=== PATIENT | female | born 1945 | race Caucasian/White ===

== ENCOUNTER 2017-01-02 09:41 | Outpatient (CLI) | payer OTHER ==
[~2017-01-02] VITALS: Ht 165.1 cm; Wt 83.9 kg
[~2017-01-02 09:41] MED LIST: ASPI81TA85 PO; ATOR40TA75 PO; BYET10IN2 SQ; CARI350T PO; LANTINJ4 SQ; LEVO100T5 PO; LISI40TAB PO; METF10004 PO; OMEP20CA3 PO
[2017-01-02] MEDS ORDERED: NS 1,000 ML IV ONE (09:45)
--- NOTE | 2017-01-02 10:43 | ROOR ---
Patient Name: Anna Borges Procedure Date: 01/02/2017 10:22 AM Date of : 1945 Age: 71 Room: [facility] Gender: Female Note Status: Finalized Procedure: Total Colonoscopy to cecum + Biopsy Polypectomy Indications: High risk colon cancer surveillance: Personal history of colonic polyps, Last colonoscopy: 2012 Providers: Remington Rueda MD Referring MD: Denzel Dutta MD Requesting Provider: Medicines: Monitored Anesthesia Care Complications: No immediate complications. Procedure: Pre-Anesthesia Assessment: - The heart rate, respiratory rate, oxygen saturations, blood pressure, adequacy of pulmonary ventilation, and response to care were monitored throughout the procedure. The Colonoscope was introduced through the anus and advanced to the cecum, identified by appendiceal orifice and ileocecal valve. The colonoscopy was performed without difficulty. The patient tolerated the procedure well. The quality of the bowel preparation was excellent. Findings: The perianal and digital rectal examinations were normal. Non-bleeding internal hemorrhoids were found during retroflexion. The hemorrhoids were small. No other significant abnormalities were identified in a careful examination of the remainder of the colon. The exam was otherwise without abnormality on direct and retroflexion views. Impression: - Non-bleeding internal hemorrhoids. - The examination was otherwise normal on direct and retroflexion views. - No specimens collected. - The exam was otherwise normal to the cecum. Recommendation: - Patient has a contact number available for emergencies. The signs and symptoms of potential delayed complications were discussed with the patient. Return to normal activities tomorrow. Written discharge instructions were provided to the patient. - High fiber diet. - Discharge patient to home. - Continue present medications. - Await pathology results. - Telephone GI clinic for pathology results in 1 week. - Check Portal Online for Path Results.([email or web address]) - Repeat colonoscopy for symptoms only. - Return to referring physician. - The findings and recommendations were discussed with the patient's family. Remington Rueda MD Remington Rueda MD 01/02/2017 10:43:10 AM This report has been signed electronically. Number of Addenda: 0 Note Initiated On: 01/02/2017 10:22 AM Estimated Blood Loss: Estimated blood loss: none.
[2017-01-02 11:39] VITALS: BP 156/74
== END 2017-01-02 11:20 | disposition home or self-care (01) ==
LOC: M OPP 09:41
PROVIDERS: ATTEND Internal Medicine Gastroenterology
DX: Z12.11 Encounter for screening for malignant neoplasm of colon (principal); Z86.010 Personal history of colon polyps; K63.5 Polyp of colon; I10 Essential (primary) hypertension; E78.5 Hyperlipidemia, unspecified; E11.9 Type 2 diabetes mellitus without complications; E03.9 Hypothyroidism, unspecified; G35 Multiple sclerosis; M54.89 Other dorsalgia; G25.81 Restless legs syndrome; R39.15 Urgency of urination; Z79.82 Long term (current) use of aspirin; Z79.899 Other long term (current) drug therapy

== ENCOUNTER 2017-12-07 08:01 | Day surgery (SDC) | payer OTHER ==
[~2017-12-07 08:01] MED LIST changes: -ASPI81TA85 PO; -ATOR40TA75 PO; -BYET10IN2 SQ; -CARI350T PO; -LANTINJ4 SQ; -LEVO100T5 PO; -LISI40TAB PO; -METF10004 PO; +MIDAZOLAM INJ 2 MG/2 ML VIAL (J2250) As Ordered; -OMEP20CA3 PO; +ONDANSETRON 4MG/2ML VIAL (J2405) As Ordered; +fentaNYL 100 MCG/2 ML INJECTION (J3010) As Ordered
[2017-12-07] MEDS: PHENYLEPHRINE 2.5% OPHTH SOL 2ML OS (09:01)
[2017-12-07] MEDS: OFLOXACIN 0.3 % (OCUFLOX) OPTH SOL 5ML OS (09:01)
[2017-12-07] MEDS: PROPARACAINE 0.5% OPHTH SOL 15ML OS (09:01)
[2017-12-07] MEDS: TROPICAMIDE 1% OPHTH SOLN 2ML OS (09:01)
[2017-12-07 09:16] LABS: BEDSIDE GLUCOSE 106 MG/DL (83-110)
[2017-12-07] MEDS: DUOVISC (0.50ML VISCOAT/0.55ML PROVISC) OPHTH KIT As Ordered (10:32)
[2017-12-07] MEDS: LIDOCAINE 0.75%/EPINEPHRINE 0.025% IN BSS 1ML SYR INTRACAMERAL (OR ONLY) As Ordered (10:32)
[2017-12-07] MEDS: BALANCED SALT IRRIGATION SOLUTION 500ML BAG (FOR OR EYE MACHINE) As Ordered (10:32)
[2017-12-07] MEDS: POVIDONE-IODINE 5% OPHTH PREP SOL 30ML As Ordered (10:32)
[2017-12-07] MEDS: CEFUROXIME 1MG/0.1ML INTRACAMERAL INJ As Ordered (10:33)
== END 2017-12-07 11:15 | disposition home or self-care (01) ==
LOC: M SDC 08:01
DX: H25.12 Age-related nuclear cataract, left eye (principal); E03.9 Hypothyroidism, unspecified; I10 Essential (primary) hypertension; E78.5 Hyperlipidemia, unspecified; E10.9 Type 1 diabetes mellitus without complications; M62.838 Other muscle spasm; G35 Multiple sclerosis; Z79.899 Other long term (current) drug therapy; Z79.82 Long term (current) use of aspirin; Z79.4 Long term (current) use of insulin; Z90.710 Acquired absence of both cervix and uterus
CPT/HCPCS: 66984

== ENCOUNTER 2017-12-14 08:33 | Day surgery (SDC) | payer OTHER ==
[2017-12-14 08:59] LABS: BEDSIDE GLUCOSE 78 MG/DL (83-110)
[2017-12-14] MEDS: OFLOXACIN 0.3 % (OCUFLOX) OPTH SOL 5ML OD (09:01)
[2017-12-14] MEDS: PROPARACAINE 0.5% OPHTH SOL 15ML OD (09:01)
[2017-12-14] MEDS: TROPICAMIDE 1% OPHTH SOLN 2ML OD (09:01)
[2017-12-14] MEDS: PHENYLEPHRINE 2.5% OPHTH SOL 2ML OD (09:01)
[2017-12-14] MEDS: POVIDONE-IODINE 5% OPHTH PREP SOL 30ML As Ordered (10:25)
[2017-12-14] MEDS: DUOVISC (0.50ML VISCOAT/0.55ML PROVISC) OPHTH KIT As Ordered (10:25)
[2017-12-14] MEDS: BALANCED SALT IRRIGATION SOLUTION 500ML BAG (FOR OR EYE MACHINE) As Ordered (10:25)
[2017-12-14] MEDS: LIDOCAINE 0.75%/EPINEPHRINE 0.025% IN BSS 1ML SYR INTRACAMERAL (OR ONLY) As Ordered (10:25)
[2017-12-14] MEDS: CEFUROXIME 1MG/0.1ML INTRACAMERAL INJ As Ordered (10:25)
[2017-12-14] MEDS ORDERED: MIDAZOLAM INJ 2 MG/2 ML VIAL (J2250) As Ordered (10:30)
[2017-12-14] MEDS ORDERED: fentaNYL 100 MCG/2 ML INJECTION (J3010) As Ordered (10:30)
== END 2017-12-14 11:30 | disposition home or self-care (01) ==
LOC: M SDC 08:33
DX: H25.11 Age-related nuclear cataract, right eye (principal); E11.9 Type 2 diabetes mellitus without complications; Z79.4 Long term (current) use of insulin; Z79.84 Long term (current) use of oral hypoglycemic drugs; G35 Multiple sclerosis; Z79.899 Other long term (current) drug therapy
CPT/HCPCS: 66984

== ENCOUNTER 2019-08-20 17:39 | Observation (INO) | payer MEDICARE, OTHER ==
[~2019-08-20] VITALS: Ht 165.1 cm; Wt 82.2 kg
[~2019-08-20 17:39] MED LIST changes: +ASPI81TA86 PO; +ATOR40TA75 PO; +BYET10IN10 SQ; +CARI1TAB7 PO; +LANTINJ4 SQ; +LEVO100T5 PO; +LISI40TA4 PO; +METF10004 PO; -MIDAZOLAM INJ 2 MG/2 ML VIAL (J2250) As Ordered; +OMEP1CAP73 PO; -ONDANSETRON 4MG/2ML VIAL (J2405) As Ordered; +TRUL0.5I SC; -fentaNYL 100 MCG/2 ML INJECTION (J3010) As Ordered
[2019-08-20 18:50] LABS: BASO % 0.3 % (0.0-1.0); EOS # 0.1 10^3/uL (0.0-0.5); EOS % 0.4 % (0.0-3.0); HEMOGLOBIN 13.5 g/dl (12.0-15.5); LYMPH # 1.1 10^3/uL (1.5-5.0); LYMPH % 8.2 % (24.0-44.0); MEAN CORPUSCULAR HEMOGLOBIN 30.2 pg (27.0-33.0); MEAN CORPUSCULAR HGB CONC 32.9 g/dl (32.0-36.5); MEAN CORPUSCULAR VOLUME 91.7 fl (80.0-96.0); MONO # 0.6 10^3/uL (0.0-0.8); MONO % 4.5 % (0.0-5.0); NEUTROPHILS # 11.6 10^3/uL (1.5-8.5); NEUTROPHILS % 86.2 % (36.0-66.0); PLATELET COUNT, AUTOMATED 208 10^3/uL (150-450); RED BLOOD COUNT 4.47 10^6/uL (4.00-5.40); WHITE BLOOD COUNT 13.5 10^3/uL (4.0-10.0)
[2019-08-20 19:05] LABS: HEMOGLOBIN A1c 6.3 %
[2019-08-20] MEDS ORDERED: DEXTROSE 50% 50 ML SYRINGE IV STA (19:15)
[2019-08-20 19:16] LABS: BLOOD UREA NITROGEN 17 MG/DL (7-18); CALCIUM LEVEL 9.1 MG/DL (8.8-10.2); CARBON DIOXIDE LEVEL 32 MEQ/L (21-32); CHLORIDE LEVEL 106 MEQ/L (98-107); CREATININE FOR GFR 0.64 MG/DL (0.55-1.30); GLOMERULAR FILTRATION RATE > 60.0 (>39); GLUCOSE, FASTING 35 MG/DL (70-100); POTASSIUM SERUM 3.4 MEQ/L (3.5-5.1); SODIUM LEVEL 142 MEQ/L (136-145)
[2019-08-20] MEDS ORDERED: lisinopriL 40 MG TAB PO ONE (19:45)
[2019-08-20] MEDS ORDERED: ATORVASTATIN 20 MG TAB PO ONE (19:45)
[2019-08-20 20:01] LABS: ALBUMIN 3.8 GM/DL (3.2-5.2); ALT/SGPT 22 U/L (12-78); BILIRUBIN,DIRECT < 0.1 MG/DL (0.0-0.2); BILIRUBIN,TOTAL 0.2 MG/DL (0.2-1.0); CK-MB VALUE MASS 5.6 NG/ML (<3.6); CPK CREATINE PHOSPHOKINASE 117 U/L (26-192); FREE T4 0.98 NG/DL (0.76-1.46); MB/CK RELATIVE INDEX 4.79 (< OR =4); THYROID STIMULATING HORMONE 0.921 uIU/ML (0.358-3.740); TOTAL PROTEIN 7.1 GM/DL (6.4-8.2); TROPONIN I 0.13 NG/ML (< 0.10)
--- NOTE | 2019-08-20 20:02 | REP ---
Clinical: Syncope . Comparison: 01/24/2008 . Findings: The mediastinum and cardiac silhouette are stable and within normal limits for portable technique. The lung mg are clear without acute consolidation, effusion, or pneumothorax. Skeletal structures are intact. Impression: No acute cardiopulmonary process appreciated. Electronically Signed by Cem Christian MD 08/20/2019 07:53 P
[2019-08-20] MEDS ORDERED: ASPIRIN 81 MG ENTERIC TAB PO SCH (21:00)
[2019-08-20] MEDS ORDERED: TRES1INJ SC (21:09)
[2019-08-20] MEDS ORDERED: INSUH10VL SC (21:09)
[2019-08-20] MEDS ORDERED: REST0.05 OU (21:09)
[2019-08-20] MEDS ORDERED: IBUP200T45 PO (21:09)
[2019-08-20] MEDS ORDERED: carisoprodoL 350 MG TAB PO PRN (21:45)
[2019-08-20] MEDS ORDERED: POTASSIUM CHLORIDE 10 MEQ SR TABLET PO ONE (21:45)
--- NOTE | 2019-08-20 22:07 | HPEPDOC ---
General Date of Admission Aug 20, 2019 at 17:40 Date of Service: Aug 20, 2019 Chief Complaint The patient is a 73-year-old female admitted with a reason for visit of Hypoglycemia. Source: Patient History of Present Illness 73 year old female presented to the ED for Hypoglycemia and syncope. Patient was in her usual state of health this am. She went grocery shopping and had some left knee weakness from her MS which sometimes bothers her. She came home about 2 pm was hungry had some fruits took her novolog and metformin and was sitting down waiting for rest of the lunch to be ready. Daughter came around the corner of the room and she complained of feeling funny and then she leaned back her head and passed out. EMS came and found her sugar to be 38. She was treated and sugars john to over 200 . in the ED lab work again showed a drop of Sugars to 35 she was awake and alert then so was given oral treatment with that her sugar john to 69 and stabilized there. On my interview she was comfortable , alert oriented and did nt have any complaints other than some left knee soreness and weakness. Her knee pain was about 3/10 and dull aching associated with weakness, no radiation. Work up int eh ED showed a trop of 0.13, Her EKG showed ST-T wave changes in the lat leads consistent with LVH. She was admitted for Hypoglycemia and syncope. Home Medications Scheduled Aspirin (Aspir 81) 81 Mg Tab, 243 MG PO QHS, (Reported) Atorvastatin Calcium (Atorvastatin Calcium) 40 Mg Tab, 40 MG PO QHS, (Reported) Cyclosporine (Restasis) 0.05% Droperette, 2 DROP OU BID, (Reported) Dulaglutide (Trulicity) 1.5 Mg/0.5 Ml Inj, 1.5 MG SC QWEEK, (Reported) MONDAYS Insulin Degludec (Tresiba Flextouch U-200) 200 Unit/1 Ml Insuln.pen, 60 UNIT SC QHS, (Reported) Insulin Human Lispro (Novolog) 100 Unit/1 Ml Vial, 1 DOSE SC AC, (Reported) PER SLIDING SCALE Levothyroxine Sodium (Levothyroxine Sodium) 100 Mcg Tab, 100 MCG PO DAILY, (R eported) Lisinopril (Lisinopril) 40 Mg Tab, 40 MG PO QHS, (Reported) Metformin HCl (Metformin HCl) 1,000 Mg Tab, 1,000 MG PO BID, (Reported) Scheduled PRN Carisoprodol (Carisoprodol) 350 Mg Tab, 350 MG PO BID PRN for MUSCLE SPASMS, (Reported) Ibuprofen (Ibu-200) 200 Mg Tablet, 800 MG PO Q8H PRN for PAIN, (Reported) Allergies Coded Allergies: No Known Allergies (Verified , 12/14/17) Past Medical History Medical History MS not on any meds, Quiescent, some left knee weakness DM Hypertension Hyperlipidemia Hypothyroid Surgical History Rotator cuff surgery, hystrectomy Family History Significant Family History: Diabetes (mther, paternal grandmother, maternal aunts), Heart disease (paternal grandmother) Social History * Smoker: Denies Alcohol: Denies Drugs: denies A-FIB/CHADSVASC A-FIB History Current/History of A-Fib/PAF?: No Review of Systems Constitutional: Reports: Other (passed out); Denies: Chills, Fever, Night Sweats Eyes: Denies: Pain, Vision change ENT: Denies: Head Aches, Ear Pain, Dysphagia Skin: Denies: Rash, Lesions, Breakdown Pulmonary: Denies: Dyspnea, Cough Cardiovascular: Denies: Chest Pain, Palpitations, Orthopnea, Paroxysmal Noc. Dyspnea, Lt Headedness Gastrointestinal: Denies: Nausea, Vomiting, Abdominal Pain, Diarrhea Genitourinary: Reports: Frequency, Incontinence; Denies: Dysuria, Retention Hematologic: Denies: Bruising, Bleeding Excessively Musculoskeletal: Reports: Joint Pain (left knee weakness), Muscle Pain (let leg) Neurological: Reports: Weakness (left leg, knee) Psych: Reports: Mood Normal; Denies: Depression, Memory Issues Physical Examination General Exam: Positive: Alert, Cooperative, No Acute Distress Eye Exam: Positive: PERRLA, Conjunctiva & lids normal, EOMI; Negative: Sclera icteric ENT Exam: Positive: Atraumatic, Mucous membr. moist/pink, Pharynx Normal Neck Exam: Positive: Supple; Negative: JVD, thyromegaly Chest Exam: Positive: Clear to auscultation, Normal air movement Heart Exam: Positive: Rate Normal, Regular Rhythm, Normal S1, Normal S2; Negative: Murmurs, Rubs Telemetry: Positive: No significant arrhythmia Abdomen Exam: Positive: Normal bowel sounds, Soft; Negative: Tenderness, Hepatospenomegaly Extremity Exam: Negative: Clubbing, Cyanosis, Edema Skin Exam: Positive: Nl turgor and temperature; Negative: Breakdown, Lesion Psych Exam: Positive: Mental status NL, Mood NL, Memory Intact, Oriented x 3 Vital Signs Vital Signs Date Time Temp Pulse Resp B/P (MAP) Pulse Ox O2 Delivery O2 Flow Rate FiO2 08/20/19 17:52 97.4 80 20 181/85 (117) 96 Room Air Laboratory Data Labs 24H Laboratory Tests 2 08/20/19 18:26: Immature Granulocyte % (Auto) 0.4, Neutrophils (%) (Auto) 86.2H, Lymphocytes (%) (Auto) 8.2L, Monocytes (%) (Auto) 4.5, Eosinophils (%) (Auto) 0.4, Basophils (%) (Auto) 0.3, Neutrophils # (Auto) 11.6H, Lymphocytes # (Auto) 1.1L, Monocytes # (Auto) 0.6, Eosinophils # (Auto) 0.1, Basophils # (Auto) 0.0, Nucleated Red Blood Cells % (auto) 0.0, Anion Gap 4L, Glomerular Filtration Rate > 60.0, Estimated Mean Plasma Glucose 134H, Hemoglobin A1c 6.3, Calcium Level 9.1, Total Bilirubin 0.2, Direct Bilirubin < 0.1, Aspartate Amino Transf (AST/SGOT) 13, Alanine Aminotransferase (ALT/SGPT) 22, Alkaline Phosphatase 85, Total Creatine Kinase 117, Creatine Kinase MB 5.6H, Creatine Kinase MB Relative Index 4.79H, Troponin I 0.13H, Total Protein 7.1, Albumin 3.8, Albumin/Globulin Ratio 1.2, Thyroid Stimulating Hormone (TSH) 0.921, Free Thyroxine 0.98 08/20/19 19:23: Bedside Glucose (Misc Panel) 69L 08/20/19 20:21: Bedside Glucose (Misc Panel) 69L CBC/BMP Laboratory Tests 08/20/19 18:26 Assessment/Plan 73 year old female presented to the ED for Hypoglycemia and syncope. Patient was in her usual state of health this am. She went grocery shopping and had some left knee weakness from her MS which sometimes bothers her. She came home about 2 pm was hungry had some fruits took her novolog and metformin and was sitting down waiting for rest of the lunch to be ready. Daughter came around the corner of the room and she complained of feeling funny and then she leaned back her head and passed out. EMS came and found her sugar to be 38. She was treated and sugars john to over 200 . in the ED lab work again showed a drop of Sugars to 35 she was awake and alert then so was given oral treatment with that her sugar john to 69 and stabilized there. On my interview she was comfortable , alert or iented and did nt have any complaints other than some left knee soreness and weakness. Her knee pain was about 3/10 and dull aching associated with weakness, no radiation. Work up int ED showed a trop of 0.13, Her EKG showed ST-T wave changes in the lat leads consistent with LVH. She was admitted for Hypoglycemia and syncope. Syncope due to Hypoglycemia A1c is 6.3 will give Dex 5% monitor FS q4 hours overnight. Will hold insulin, metformin for now. may need to reduce home insulin dosage. Elevated troponins without any cardiac symptoms or new EKG changes will recheck cardiac enzymes EKG repeat in AM Patient says had several stress tests in the past was told that had a fixed abnormality at the bottom of the heart by Dr Godinez nothing major. will monitor under telemetry Hypertension continue lisinopril Hyperlipidemia statin Hypothyroid Synthroid MS Torres prn muscle spasms Plan / VTE VTE Prophylaxis Ordered?: Yes ROSAMARIA RODRÍGUEZ MD Aug 20, 2019 22:07
[2019-08-20 23:11] VITALS: BP 177/88
[2019-08-20] MEDS: D5W 1,000 ML IV SCH (23:18)
[2019-08-20 23:40] VITALS: BP 147/63
[2019-08-21] MEDS ORDERED: PERCOCET 5MG/325MG TAB PO PRN ×2 (00:30)
[2019-08-21 02:44] LABS: CK-MB VALUE MASS 4.8 NG/ML (<3.6); MB/CK RELATIVE INDEX 4.36 (< OR =4); TROPONIN I 0.22 NG/ML (< 0.10)
[2019-08-21 05:46] LABS: BASO % 0.4 % (0.0-1.0); EOS # 0.1 10^3/uL (0.0-0.5); EOS % 1.6 % (0.0-3.0); HEMATOCRIT 37.6 % (36.0-47.0); HEMOGLOBIN 12.1 g/dl (12.0-15.5); LYMPH # 2.5 10^3/uL (1.5-5.0); LYMPH % 31.9 % (24.0-44.0); MEAN CORPUSCULAR HEMOGLOBIN 29.5 pg (27.0-33.0); MEAN CORPUSCULAR HGB CONC 32.2 g/dl (32.0-36.5); MEAN CORPUSCULAR VOLUME 91.7 fl (80.0-96.0); MONO # 0.6 10^3/uL (0.0-0.8); MONO % 7.4 % (0.0-5.0); NEUTROPHILS # 4.5 10^3/uL (1.5-8.5); NEUTROPHILS % 58.3 % (36.0-66.0); PLATELET COUNT, AUTOMATED 194 10^3/uL (150-450); WHITE BLOOD COUNT 7.7 10^3/uL (4.0-10.0)
[2019-08-21 06:00] VITALS: BP 139/85
[2019-08-21 06:05] LABS: BLOOD UREA NITROGEN 14 MG/DL (7-18); CALCIUM LEVEL 8.8 MG/DL (8.8-10.2); CARBON DIOXIDE LEVEL 29 MEQ/L (21-32); CHLORIDE LEVEL 109 MEQ/L (98-107); CREATININE FOR GFR 0.68 MG/DL (0.55-1.30); GLOMERULAR FILTRATION RATE > 60.0 (>39); GLUCOSE, FASTING 89 MG/DL (70-100); POTASSIUM SERUM 3.8 MEQ/L (3.5-5.1); SODIUM LEVEL 143 MEQ/L (136-145)
[2019-08-21] MEDS ORDERED: FLUBLOK(EGG FREE)(QUAD)INFLUENZA VACC 0.5ML SYRINGE 18YRS & OLDER IM ONE (09:00)
[2019-08-21] MEDS ORDERED: LEVOTHYROXINE 100MCG TABLET (0.1MG) PO SCH (09:00)
[2019-08-21] MEDS ORDERED: ENOXAPARIN 40MG/0.4ML SYRINGE (J1650 PER 10MG) SC SCH (09:00)
--- NOTE | 2019-08-21 09:02 | ECGEPIP ---
[facility] - ED Test Date: 2019-08-20 Pat Name: JARVIS CASTRO Department: Room: [place] [address] Gender: Female Security Installation Technician: homero : 1945 Requested By: MEL Aguirre Order Number: [id number] Reading MD: Arleen Hernandez Measurements Intervals [place] Rate: 75 P: 34 VA: 177 QRS: 11 QRSD: 106 T: 129 QT: 416 QTc: 466 Interpretive Statements SINUS RHYTHM LEFT VENTRICULAR HYPERTROPHY AND ST-T CHANGE CONCERN FOR BRUGADA SYNDROME NO PRIOR ECG FOR COMPARISON CLINICAL CORRELATION ADVISED BY CARDIOLOGY Electronically Signed on 08-21-2019 9:01:47 EDT by Arleen Hernandez
[2019-08-21] MEDS: D5W 1,000 ML IV SCH (12:00)
[2019-08-21 12:11] LABS: APPEARANCE, URINE HAZY (CLEAR); BACTERIA, URINE AUTO 1+ (NEGATIVE); BILIRUBIN, URINE AUTO NEGATIVE (NEGATIVE); BLOOD, URINE BLOOD NEGATIVE (NEGATIVE); COLOR, URINE STRAW (YELLOW); GLUCOSE, URINE (UA) AUTO NEGATIVE (NEGATIVE); KETONE, URINE AUTO NEGATIVE (NEGATIVE); LEUKOCYTE ESTERASE, URINE AUTO 1+ (NEGATIVE); NITRITE, URINE AUTO NEGATIVE (NEGATIVE); PROTEIN, URINE AUTO NEGATIVE (NEGATIVE); RBC, URINE AUTO 0 /HPF (0-3); SPECIFIC GRAVITY URINE AUTO 1.003 (1.002-1.035); SQUAMOUS EPITHELIAL CELL UR AU 1 /HPF (0-6); UROBILINOGEN, URINE AUTO 0.2 mg/dL (0.0-2.0); WBC, URINE AUTO 5 /HPF (0-3)
[2019-08-21 12:44] LABS: TROPONIN I 0.25 NG/ML (< 0.10)
[2019-08-21 14:00] VITALS: BP 143/86
[2019-08-21] MEDS ORDERED: HEPARIN DRIP 25,000 UNITS in IV 1 EA IV SCH (14:14)
[2019-08-21] MEDS ORDERED: HEPARIN SOD (PORCINE) 5000UNITS/ML 1ML VIAL/SYRINGE IV PRN (14:15)
[2019-08-21] MEDS ORDERED: METOPROLOL TART 12.5 MG PER 1/2 TAB PO SCH (14:35)
[2019-08-21 14:58] VITALS: BP 143/88
[2019-08-21 14:58] LABS: INR 1.14; PROTHROMBIN TIME 14.3 SECONDS (11.8-14.0)
[2019-08-21 14:59] LABS: PARTIAL THROMBOPLASTIN TIME 30.6 SECONDS (25.0-38.4)
[2019-08-21] MEDS ORDERED: METO1TAB87 PO (15:59)
--- NOTE | 2019-08-21 16:23 | DS.PDOC ---
Discharge Summary General Date of Admission Aug 20, 2019 at 17:40 Date of Discharge 08/21/19 Primary Care Physician: NIGEL LUNA M.D. Attending Physician: Shannan Santiago MD Discharge Summary HISTORY OF PRESENT ILLNESS: Patient is a 73 year old female presented to the ED for Hypoglycemia and syncope. She went grocery shopping and had some left knee weakness from her MS which sometimes bothers her. She came home about 2 pm on 08/20/19, was hungry had some fruits. She took her novolog and metformin and was sitting down waiting for rest of the lunch to be ready. Daughter came around the corner of the room and she complained of feeling funny. She then leaned back her head and passed out. EMS came and found her sugar to be 38. She was treated and sugars john to over 200 . In the ED lab work again showed a drop of Sugars to 35, she was awake and alert then so was given oral treatment. Her sugar john to 69 and stabilized there. On initial interview she was comfortable , alert, oriented and did nt have any complaints other than some left knee soreness and weakness. Her knee pain was about 3/10 and dull aching associated with weakness, no radiation. Work up in the ED showed a trop of 0.13, Her EKG showed ST-T wave changes in the lat leads consistent with LVH. She was admitted for hypoglycemia and syncope, elevated troponins. HOSPITAL COURSE: Over the evening the patient's troponin to 0.22, third set later was even more elevated at 0.25. BNP was elevated at 1166. Blood sugars between 8591 without any insulin having been given, remained on D5 water at 75 mL/hour. ECG showed sinus rhythm with left ventricular hypertrophy and STT wave changes, concern for Brugada syndrome mentioned. When obtained prior ECG for comparison from 2013, it appeared to be similar. The patient denied chest pain, shortness of breath and actually admitted to feeling much improved the morning after admission. Due to the elevated troponins and baseline abnormal ECG and risk factors for ACS, cardiology was contacted and recommended transfer to facility with interventional cardiology capabilities. The case was discussed with Dr. Trujillo, [facility] who accepted patient. Heparin gtt was started. At the time of transfer, patient denied chest pain, n/v/d, fevers, chills, shortness of breath, diaphoresis. REVIEW OF SYSTEMS: CONSTITUTIONAL: Denies lack of energy, unexplained weight gain or weight loss, loss of appetite, fever, night sweats EYES: Denies eye drainage, eye pain, visual changes, dry/irritated eye EARS, NOSE, MOUTH, THROAT: Denies difficulty hearing, ringing in ears, mouth sores, loose teeth, sore throat, facial numbness or pain NECK: Denies swollen glands CARDIOVASCULAR: Denies irregular heartbeat, racing heart, chest pains, swelling of feet or legs, pain in legs with walking RESPIRATORY: Denies shortness of breath, night sweats, wheezing, sputum production, oxygen at home, coughing up blood, cough lasting > 1 month GASTROINTESTINAL: Denies abdominal pain, constipation, bloody stool, diarrhea, heartburn, nausea, vomiting GENITOURINARY: Denies painful urination, bloody urine, frequent urination, urgency, leaking urine, impotence MUSCULOSKELETAL: Denies joint pain, muscle pain, leg swelling INTEGUMENTARY: Denies rash, itching, new skin lesion, change in existing skin lesion, hair loss or increase, breast changes. NEUROLOGICAL: Denies headaches, dizziness PSYCHIATRIC: Denies depression, anxiety, recurrent bad thoughts, mood swings, hallucinations PAST MEDICAL HISTORY: MS DM Hypertension Hyperlipidemia Hypothyroidism PAST SURGICAL HISTORY: Rotator cuff surgery, hystrectomy FAMILY HISTORY: Diabetes (mother, paternal grandmother, maternal aunts), Heart disease (paternal grandmother) SOCIAL HISTORY: Smoker: Denies Alcohol: Denies Drugs: denies ALLERGIES: Please see below. DISCHARGE MEDICATIONS: Please see below. PHYSICAL EXAMINATION: CONSTITUTIONAL: No acute distress, resting comfortably, AAO x 3 EYES: PERRLA, EOM intact HENT, MOUTH: Normocephalic, atraumatic, moist mucous membranes NECK: SUPPLE, no JVD, no lymphadenopathy, no carotid bruit CV: Regular rate and rhythm, S1S2 normal, no murmurs/rubs/gallops RESPIRATORY: Clear to auscultation bilaterally, no rales/rhonchi/wheezes GI: BS positive in 4 quadrants, soft, nontender, nondistended, no rebound or guarding, no organomegaly : Deferred MUSCULOSKELETAL: Left knee swollen, no erythema or warmth- says chronic. Decreased ROM of hip joints and all joints below this. No cyanosis, clubbing, extremity edema INTEGUMENTARY: Intact, no rashes, no lesions, no erythema NEUROLOGIC: LLE weakness-chronic, strength 2-3/5 baseline. Cranial Nerves II-XII are intact, no focal deficits. PSYCHIATRIC: Mood and affect are normal LABORATORY DATA: Please see below IMAGING: CXR: No acute cardiopulmonary process appreciated. ECG: Sinus rhythm, left ventricular hypertrophy and STT wave changes, concern for Brugada syndrome, abnormal ECG. ASSESSMENT: 73-year-old female admitted for syncope and hypoglycemia, concern for acute coronary syndrome transferring to [facility] under Dr. Trujillo's service. PLAN: 1. Elevated troponin, r/o ACS. Multiple risk factors: HTN, HLD, DM with no known cardiac history. Elevated troponin up to 0.25 since admission, BNP >110, abnormal ECG. Started on heparin gtt, ASA, BB low dose, statin. Denies chest pain or shortness of breath. 2. Hypoglycemia, acute. Hx of DM, on oral metformin and insulin at home. Cannot r/o secondary to coronary event above vs. due to not eating and taking meds at home. C/w D5 W at 75 cc/hr, encouraged to eat lunch this afternoon. BS slowly increasing. 3. Syncope cannot r/o 2/2 to problem #1. Will need echo, carotid doppler. Or thostatics neg. 4. Left knee pain, chronic. Seeing ortho as outpatient and have discussed surgery. Would recommend XR to examine further. 5. HTN. Stable. C/w current meds. 6. Multiple sclerosis. Not currently in flare. Appears to be at baseline. Not on home meds. 7. HLD. C/w statin. 8. Hypothyroidism. TSH wnl. C/w levothyroxine. 9. DVT px. Heparin gtt. DISPOSITION: Transferring to [facility] today, accepting physician is Dr. Trujillo, cardiology. TIME SPENT ON DISCHARGE: Greater than 30 minutes. Vital Signs/I&Os Vital Signs Date Time Temp Pulse Resp B/P (MAP) Pulse Ox O2 Delivery O2 Flow Rate FiO2 08/21/19 14:58 72 143/88 08/21/19 14:00 97.4 18 95 Room Air I&O- Last 24 Hours up to 6 AM 08/21/19 06:00 Intake Total 50 ml Balance 50 ml Laboratory Data Labs 24H Laboratory Tests 2 08/20/19 17:50: Bedside Glucose (Misc Panel) 87 08/20/19 18:26: Immature Granulocyte % (Auto) 0.4, Neutrophils (%) (Auto) 86.2H, Lymphocytes (%) (Auto) 8.2L, Monocytes (%) (Auto) 4.5, Eosinophils (%) (Auto) 0.4, Basophils (%) (Auto) 0.3, Neutrophils # (Auto) 11.6H, Lymphocytes # (Auto) 1.1L, Monocytes # (Auto) 0.6, Eosinophils # (Auto) 0.1, Basophils # (Auto) 0.0, Nucleated Red Blood Cells % (auto) 0.0, Anion Gap 4L, Glomerular Filtration Rate > 60.0, Estimated Mean Plasma Glucose 134H, Hemoglobin A1c 6.3, Calcium Level 9.1, Total Bilirubin 0.2, Direct Bilirubin < 0.1, Aspartate Amino Transf (AST/SGOT) 13, Al anine Aminotransferase (ALT/SGPT) 22, Alkaline Phosphatase 85, Total Creatine Kinase 117, Creatine Kinase MB 5.6H, Creatine Kinase MB Relative Index 4.79H, Troponin I 0.13H, Total Protein 7.1, Albumin 3.8, Albumin/Globulin Ratio 1.2, Thyroid Stimulating Hormone (TSH) 0.921, Free Thyroxine 0.98 08/20/19 19:23: Bedside Glucose (Misc Panel) 69L 08/20/19 20:21: Bedside Glucose (Misc Panel) 69L 08/20/19 22:19: Bedside Glucose (Misc Panel) 121H 08/21/19 02:02: Total Creatine Kinase 110, Creatine Kinase MB 4.8H, Creatine Kinase MB Relative Index 4.36H, Troponin I 0.22#H 08/21/19 02:10: Bedside Glucose (Misc Panel) 110 08/21/19 05:30: Bedside Glucose (Misc Panel) 85, Immature Granulocyte % (Auto) 0.4, Neutrophils (%) (Auto) 58.3, Lymphocytes (%) (Auto) 31.9, Monocytes (%) (Auto) 7.4H, Eosinophils (%) (Auto) 1.6, Basophils (%) (Auto) 0.4, Neutrophils # (Auto) 4.5, Lymphocytes # (Auto) 2.5, Monocytes # (Auto) 0.6, Eosinophils # (Auto) 0.1, Basophils # (Auto) 0.0, Nucleated Red Blood Cells % (auto) 0.0, Anion Gap 5L, Glomerular Filtration Rate > 60.0, Calcium Level 8.8 08/21/19 07:53: Bedside Glucose (Misc Panel) 91 08/21/19 11:40: Bedside Glucose (Misc Panel) 120H 08/21/19 11:42: Troponin I 0.25H, HF-Dog-N-Type Natriuretic Peptide 1166H 08/21/19 11:50: Urine Color STRAW, Urine Appearance HAZY, Urine pH 8.0, Urine Specific [place] 1.003, Urine Protein NEGATIVE, Urine Glucose (Auto)(UA) NEGATIVE, Urine Ketones (Auto) NEGATIVE, Urine Blood NEGATIVE, Urine Nitrite NEGATIVE, Urine Bilirubin NEGATIVE, Urine Urobilinogen 0.2, Urine Leukocyte Esterase (Auto) 1+H, Urine WBC (Auto) 5H, Urine RBC (Auto) 0, Urine Hyaline Casts (Auto) 0, Urine Bacteria (Auto) 1+H, Urine Squamous Epithelial Cells 1, Urine Sperm (Auto) 08/21/19 14:31: Prothrombin Time 14.3H, Prothromb Time International Ratio 1.14, Activated Partial Thromboplast Time 30.6 CBC/BMP Laboratory Tests 08/20/19 18:26 08/21/19 05:30 FSBS Laboratory Tests Test 08/20/19 17:50 08/20/19 19:23 08/20/19 20:21 08/20/19 22:19 Range/Units Bedside Glucose (Misc Panel) 87 69 69 121 83-110 MG/DL Test 08/21/19 02:10 08/21/19 05:30 08/21/19 07:53 08/21/19 11:40 Range/Units Bedside Glucose (Misc Panel) 110 85 91 120 83-110 MG/DL Discharge Medications Scheduled Aspirin (Aspir 81) 81 Mg Tab, 243 MG PO QHS, (Reported) Atorvastatin Calcium (Atorvastatin Calcium) 40 Mg Tab, 40 MG PO QHS, (Reported) Cyclosporine (Restasis) 0.05% Droperette, 2 DROP OU BID, (Reported) Levothyroxine Sodium (Levothyroxine Sodium) 100 Mcg Tab, 100 MCG PO DAILY, (Reported) Lisinopril (Lisinopril) 40 Mg Tab, 40 MG PO QHS, (Reported) Metoprolol Tartrate (Metoprolol Tartrate) 25 Mg Tablet, 12.5 MG PO BID Scheduled PRN Carisoprodol (Carisoprodol) 350 Mg Tab, 350 MG PO BID PRN for MUSCLE SPASMS, (Reported) Allergies Coded Allergies: No Known Allergies (Verified , 12/14/17) Shannan Santiago MD Aug 21, 2019 16:23
[2019-08-21] MEDS ORDERED: ATORVASTATIN 20 MG TAB PO SCH (21:00)
[2019-08-21] MEDS ORDERED: lisinopriL 40 MG TAB PO SCH (21:00)
--- NOTE | 2019-08-22 08:41 | ECGEPIP ---
[facility] Test Date: 2019-08-21 Pat Name: JARVIS CASTRO Department: Room: C1371-10 Gender: Female Surgical Processor: ELYSE : 1945 Requested By: Shannan Latham Order Number: [id number] Reading MD: Sher Godinez Measurements Intervals [place] Rate: 64 P: 61 IN: 181 QRS: 18 QRSD: 103 T: 151 QT: 451 QTc: 466 Interpretive Statements Normal sinus rhythm LA conduction disturbance Left ventricular hypertrophy by Jeffery criteria No change from earlier the same day Electronically Signed on 08-22-2019 8:40:38 EDT by Sher Godinez
--- NOTE | 2019-08-23 12:34 | ECHO ---
DATE OF PROCEDURE: 08/21/2019 DATE OF : 1945 AGE: 73 GENDER: Female HEIGHT: 65 inches WEIGHT: 180 pounds BODY SURFACE AREA: 1.89 m2 INPATIENT: [address] [place] [address] room 4211 REFERRING PHYSICIAN: Dr. Shannan Santiago INDICATION: Abnormal EKG. MEASUREMENTS: 2-D Measurements: RV: 2.6 cm LV: 4.9 cm Septum: 1.2 cm Posterior wall: 1.2 cm Aortic root: 3.5 cm LA: 4.3 cm LVEF: 75% Doppler Measurements: AV: 1.34 m/sec LVOT: 0.9 m/sec LVOT: 2.0 cm MV - E: 81, A: 106, EA ratio: 0.8 Early mitral deceleration time: 317 ms E prime medial: 3.7, A prime medial: 8.5, E prime lateral: 4.1 Average E/E prime ratio: 20.8 PV: 0.9 m/sec Pulmonary artery acceleration time: 106 ms RVSP: 34 mmHg IVC: 1.5 cm COMMENTS: Normal sinus rhythm without intraventricular conduction disturbance. M-mode and two-dimensional echocardiography was performed with pulsed, continuous wave, color flow and tissue Doppler studies. Borderline left ventricle hypertrophy with hyperkinetic wall motion. Mildly dilated left atrium with grade 1 LV diastolic dysfunction and elevated estimated mean left atrial pressure. Normal right heart chamber sizes and motion with Doppler sign of mild pulmonary hypertension. Normal IVC size and collapse against an elevated central venous pressure. Normal aortic dimensions. Mild aortic valvular sclerosis without functional abnormality. Moderate mitral annular calcification with normal appearing leaflets and leaflet excursion and only very mild mitral insufficiency. Normal appearing tricuspid valve with very mild insufficiency. No apparent intracardiac mass or pericardial effusion.
== END 2019-08-21 16:46 | disposition short-term general hospital (02) ==
LOC: M ED 17:39 → M ED INP 17:40 → ENRESERV 22:24 → M MSPAV 23:10
PROVIDERS: ADMIT Internal Medicine Nephrology; ATTEND Internal Medicine
DX: R55 Syncope and collapse (principal); E11.649 Type 2 diabetes mellitus with hypoglycemia without coma; G35 Multiple sclerosis; I10 Essential (primary) hypertension; E78.49 Other hyperlipidemia; E03.9 Hypothyroidism, unspecified; Z79.82 Long term (current) use of aspirin; Z79.84 Long term (current) use of oral hypoglycemic drugs; Z79.4 Long term (current) use of insulin; Z79.899 Other long term (current) drug therapy
CPT/HCPCS: 36415; 71045; 80048; 80076; 81001; 82550; 82553; 83036; 83880; 84439; 84443; 84484; 85025; 85610; 85730; 90682; 93005; 93041; 93306; 94760; 96372; 97161; 99285; G0378; J1644; J1650

== ENCOUNTER → 2019-09-13 | Outpatient (CLI) | payer MEDICARE ==
[~2019-09-13] MED LIST changes: +ASPI81TA85 PO; -ASPI81TA86 PO; +IBUP200T45 PO; +INSUH10VL SC; +LISI40TA PO; -LISI40TA4 PO; +METO1TAB87 PO; +REST0.05 OU; +TRES1INJ SC
[2019-09-13 17:43] LABS: BASO % 0.5 % (0.0-1.0); EOS # 0.2 10^3/uL (0.0-0.5); EOS % 2.5 % (0.0-3.0); HEMATOCRIT 40.6 % (36.0-47.0); HEMOGLOBIN 13.1 g/dl (12.0-15.5); LYMPH # 1.7 10^3/uL (1.5-5.0); LYMPH % 26.2 % (24.0-44.0); MEAN CORPUSCULAR HEMOGLOBIN 30.2 pg (27.0-33.0); MEAN CORPUSCULAR HGB CONC 32.3 g/dl (32.0-36.5); MEAN CORPUSCULAR VOLUME 93.5 fl (80.0-96.0); MONO # 0.4 10^3/uL (0.0-0.8); MONO % 6.9 % (0.0-5.0); NEUTROPHILS # 4.1 10^3/uL (1.5-8.5); NEUTROPHILS % 63.7 % (36.0-66.0); PLATELET COUNT, AUTOMATED 197 10^3/uL (150-450); RED BLOOD COUNT 4.34 10^6/uL (4.00-5.40); WHITE BLOOD COUNT 6.4 10^3/uL (4.0-10.0)
[2019-09-13 17:49] LABS: ALBUMIN 3.7 GM/DL (3.2-5.2); BLOOD UREA NITROGEN 22 MG/DL (7-18); CALCIUM LEVEL 9.1 MG/DL (8.8-10.2); CARBON DIOXIDE LEVEL 30 MEQ/L (21-32); CHLORIDE LEVEL 106 MEQ/L (98-107); CREATININE FOR GFR 0.81 MG/DL (0.55-1.30); GLOMERULAR FILTRATION RATE > 60.0 (>39); GLUCOSE, FASTING 154 MG/DL (70-100); NT-PRO BNP 774 PG/ML (<125); PHOSPHORUS LEVEL 3.2 MG/DL (2.5-4.9); POTASSIUM SERUM 4.2 MEQ/L (3.5-5.1); SODIUM LEVEL 141 MEQ/L (136-145); THYROID STIMULATING HORMONE 0.714 uIU/ML (0.358-3.740)
== END ==
LOC: M LAB 16:09
PROVIDERS: ATTEND Internal Medicine Cardiovascular Disease
DX: I49.3 Ventricular premature depolarization (principal); I50.32 Chronic diastolic (congestive) heart failure; I25.10 Atherosclerotic heart disease of native coronary artery without angina pectoris

== ENCOUNTER → 2019-11-13 | Outpatient (CLI) | payer MEDICARE ==
[~2019-11-13] MED LIST changes: -ASPI81TA85 PO; +ASPI81TA86 PO
[2019-11-13 13:03] LABS: ALBUMIN 3.4 GM/DL (3.2-5.2); BLOOD UREA NITROGEN 27 MG/DL (7-18); CALCIUM LEVEL 9.2 MG/DL (8.8-10.2); CARBON DIOXIDE LEVEL 33 MEQ/L (21-32); CHLORIDE LEVEL 106 MEQ/L (98-107); CREATININE FOR GFR 0.75 MG/DL (0.55-1.30); GLOMERULAR FILTRATION RATE > 60.0 (>39); GLUCOSE, FASTING 36 MG/DL (70-100); MAGNESIUM LEVEL 2.3 MG/DL (1.8-2.4); NT-PRO BNP 677 PG/ML (<450); PHOSPHORUS LEVEL 4.9 MG/DL (2.5-4.9); POTASSIUM SERUM 4.7 MEQ/L (3.5-5.1); SODIUM LEVEL 142 MEQ/L (136-145)
== END ==
LOC: M PLALAB 08:59
PROVIDERS: ATTEND Internal Medicine Cardiovascular Disease
DX: I49.3 Ventricular premature depolarization (principal); I50.32 Chronic diastolic (congestive) heart failure; I11.0 Hypertensive heart disease with heart failure

== ENCOUNTER → 2020-05-15 | Outpatient (CLI) | payer MEDICARE ==
[~2020-05-15] MED LIST changes: -LISI40TA PO; +LISI40TA4 PO
[2020-05-15 11:36] LABS: HEMATOCRIT 43.5 % (36.0-47.0); MEAN CORPUSCULAR HEMOGLOBIN 31.4 pg (27.0-33.0); MEAN CORPUSCULAR HGB CONC 32.2 g/dl (32.0-36.5); MEAN CORPUSCULAR VOLUME 97.5 fl (80.0-96.0); PLATELET COUNT, AUTOMATED 193 10^3/uL (150-450); RED BLOOD COUNT 4.46 10^6/uL (4.00-5.40); WHITE BLOOD COUNT 6.5 10^3/uL (4.0-10.0)
[2020-05-15 12:24] LABS: ALT/SGPT 29 U/L (12-78); BILIRUBIN,TOTAL 0.2 MG/DL (0.2-1.0); BLOOD UREA NITROGEN 29 MG/DL (7-18); CALCIUM LEVEL 10.1 MG/DL (8.8-10.2); CARBON DIOXIDE LEVEL 29 MEQ/L (21-32); CHLORIDE LEVEL 105 MEQ/L (98-107); CREATININE FOR GFR 0.83 MG/DL (0.55-1.30); GLOMERULAR FILTRATION RATE > 60.0 (>39); GLUCOSE, FASTING 147 MG/DL (70-100); NT-PRO BNP 560 PG/ML (<450); POTASSIUM SERUM 4.8 MEQ/L (3.5-5.1); SODIUM LEVEL 139 MEQ/L (136-145); TOTAL PROTEIN 7.2 GM/DL (6.4-8.2)
== END ==
LOC: M PLALAB 08:02
PROVIDERS: ATTEND Internal Medicine Cardiovascular Disease
DX: I50.32 Chronic diastolic (congestive) heart failure (principal)

== ENCOUNTER → 2020-10-26 | Outpatient (CLI) | payer MEDICARE ==
[~2020-10-26] MED LIST changes: -IBUP200T45 PO; +IBUP200T46 PO
== END ==
LOC: M RAD 12:26
PROVIDERS: ATTEND Family Medicine
DX: I73.9 Peripheral vascular disease, unspecified (principal)

== ENCOUNTER → 2021-12-13 | Outpatient (REF) | payer MEDICARE ==
[2021-12-14 14:08] LABS: ANTI DOUBLE STRAND-DNA AB <1 IU/mL (0-9); ANTINUCLEAR ANTIBODIES DIRECT Positive (Negative); RNP ANTIBODIES >8.0 AI (0.0-0.9); SJOGREN'S ANTI SS-A <0.2 AI (0.0-0.9); SJOGREN'S ANTI SS-B <0.2 AI (0.0-0.9); SMITH ANTIBODIES <0.2 AI (0.0-0.9)
== END ==
LOC: M LAB REF 11:55
PROVIDERS: ATTEND Family Medicine
DX: G60.9 Hereditary and idiopathic neuropathy, unspecified (principal); G47.62 Sleep related leg cramps

== ENCOUNTER → 2023-08-12 | Outpatient (CLI) | payer OTHER | LOC: M EKG 08:08 | PROVIDERS: ATTEND Internal Medicine Cardiovascular Disease | DX: I49.3 Ventricular premature depolarization (principal) ==

== ENCOUNTER → 2023-08-22 | Outpatient (CLI) | payer OTHER | LOC: M PLAIMG 10:26 | PROVIDERS: ATTEND Internal Medicine Cardiovascular Disease | DX: I35.8 Other nonrheumatic aortic valve disorders (principal) ==

== ENCOUNTER → 2024-07-09 | Outpatient (CLI) | payer MEDICARE ==
[~2024-07-09] MED LIST changes: +CARI-555 PO; -CARI1TAB7 PO
== END ==
LOC: M EKG 07:52
PROVIDERS: ATTEND Physician Assistant
DX: I49.5 Sick sinus syndrome (principal); I47.10 Supraventricular tachycardia, unspecified